=== PATIENT | female | born 1975 | race Caucasian/White ===

== ENCOUNTER 2022-01-21 08:35 | Emergency (ER) | payer BC, SELFPAY ==
[2022-01-21 09:26] VITALS: BP 98/65; PULSE 67; RESP 19; TEMP 37.1; O2SAT 100
--- NOTE | 2022-01-21 09:41 | ED.URI ---
HPI - URI/Sore Throat General Chief Complaint: Upper Respiratory Infection Stated Complaint: SORE THROAT/NASAL CONGESTION Time Seen by Provider: 01/21/22 09:36 Source: patient Mode of arrival: ambulatory Limitations: no limitations History of Present Illness HPI Narrative: Patient presents today with a 6 day history of sore throat and nasal congestion. Denies fever or any additional symptoms. She currently rates her pain 5/10 and has been gargling salt water and drinking hot tea without much relief. Son was diagnosed with strep throat 1 week ago. Related Data Allergies Allergy/AdvReac Type Severity Reaction Status Date / Time clarithromycin AdvReac N/V Verified 01/21/22 09:31 HYDROCODONE BIT AdvReac N/V Uncoded 01/21/22 09:31 Review of Systems Review of Systems: CONSTITUTIONAL: Denies body aches, fever, chills, or sweats. EYES: Denies visual changes, redness, or discharge. ENT: Denies rhinorrhea, or otalgia.+ sore throat, congestion CARDIOVASCULAR: Denies chest pain, palpitations, or edema. RESPIRATORY: Denies cough or dyspnea. GASTROINTESTINAL: Denies abdominal pain, nausea, vomiting, or diarrhea. GENITOURINARY: Denies dysuria or hematuria. SKIN: Denies rash, itching, or wounds. MUSCULOSKELETAL: Denies back pain, joint pain, or myalgia. NEUROLOGIC: Denies headache, numbness, tingling, or weakness. PSYCH: Denies depression or anxiety. [facility] Social History Social History Smoking status: Never smoker Alcohol intake: current Alcohol use details: Occasionally Substance use: never Comments At time of signature, I have reviewed and agree with nursing past medical, surgical, social and family history unless otherwise noted. Please see nursing chart for further information. There is no relevant family history pertinent to the presenting complaint Exam Narrative: GENERAL: Well-appearing, well-nourished, and in no acute distress. HEAD: Normocephalic, atraumatic. EYES: EOMI. No redness or drainage. Conjunctivae normal. ENT: Mucous membranes pink and moist. Nares congested. No rhinorrhea. TMs normal bilaterally. Throat mildly erythematous and edematous without exudate. Uvula midline. NECK: Normal AROM. Supple. No lymphadenopathy. CHEST: No respiratory distress. Clear to auscultation. HEART: Regular rate and rhythm. No murmur appreciated. Normal peripheral pulses. EXTREMITIES: Normal range of motion. No edema. SKIN: Warm, dry, no rash. Capillary refill normal. Normal skin turgor. NEURO: No focal deficits. Alert and oriented x3. Gait steady. PSYCH: Normal affect. No signs of depression or anxiety. Course Course Level of Care: Express Care Visit Vital Signs Vital signs: Vital Signs Temperature 98.7 F 01/21/22 09:26 Pulse Rate 67 01/21/22 09:26 Respiratory Rate 19 01/21/22 09:26 Blood Pressure 98/65 L 01/21/22 09:26 Pulse Oximetry 100 01/21/22 09:26 Oxygen Delivery Room Air 01/21/22 09:26 Temperature 98.7 F 01/21/22 09:26 Pulse Rate 67 01/21/22 09:26 Respiratory Rate 19 01/21/22 09:26 Blood Pressure 98/65 L 01/21/22 09:26 Pulse Oximetry 100 01/21/22 09:26 Oxygen Delivery Room Air 01/21/22 09:26 Reviewed MDM - URI/Sore Throat Differential Diagnosis Differential diagnosis: Likely upper respiratory infection, otitis media, viral infection, pharyngitis and other (Strep throat) Lab Data Attestation: I reviewed the patient's lab results. Lab results narrative: Rapid strep positive Critical Care Time Critical Care Time Critical Care Time: No Discharge Plan Discharge Clinical Impression: Strep throat Patient Disposition: Home, Self-Care Condition: Stable Instructions: Antibiotic Form, Strep Throat (DC) Additional Instructions: Please take the azithromycin as prescribed until gone. Take Tylenol or ibuprofen at home if needed for pain. You will be contagious for 48 hours after starti
== END 2022-01-21 09:50 | disposition home or self-care (01) ==
PROVIDERS: Emergency Provider Nurse Practitioner
DX: J02.0 Streptococcal pharyngitis (principal)
CPT/HCPCS: 87880; 99213; G0463

== ENCOUNTER 2022-07-06 08:03 | Emergency (ER) | payer BC, SELFPAY ==
[2022-07-06 08:10] VITALS: BP 103/84; PULSE 83; RESP 16; TEMP 36.5; O2SAT 100
--- NOTE | 2022-07-06 08:28 | ED.URI ---
HPI - URI/Sore Throat General Chief Complaint: Upper Respiratory Infection Stated Complaint: SORE THROAT Source: patient Mode of arrival: ambulatory Limitations: no limitations History of Present Illness HPI Narrative: 46-year-old female presents to [facility] with complaints of sore throat, headache, nasal congestion and sinus pressure since yesterday. Patient has been taking [id number] DayQuil and Gladys-Burns with minimal relief. Patient reports that her kitten was recently diagnosed with a virus and she is concerned that her kitten might have shared illness with her. patient denies fever, body aches, chills, nausea vomiting or diarrhea. Patient is a nonsmoker. Patient denies recent travel. MD elicited complaint: sore throat and nasal congestion Onset (ago): day(s) (2) Able to tolerate fluids by mouth: Yes Exacerbating factors: swallowing Treatments prior to arrival: cold medicine Related Data Allergies Allergy/AdvReac Type Severity Reaction Status Date / Time clarithromycin AdvReac N/V Verified 07/06/22 08:17 HYDROCODONE BIT AdvReac N/V Uncoded 07/06/22 08:17 Review of Systems Constitutional: Constitutional: Denies chills, Denies fatigue, Denies fever(s) and Denies weakness ENT: Denies dysphagia, Denies vertigo, Denies dizziness, Denies epistaxis, Reports nasal congestion and Reports sore throat Cardiovascular: Cardiovascular: Denies chest pain Respiratory: Respiratory: Denies cough, Denies dyspnea and Denies wheezing Gastrointestinal: Gastrointestinal: Denies diarrhea, Denies nausea and Denies vomiting Genitourinary: Genitourinary: Denies dysuria Integumentary/Breasts: Skin/Breast: Denies rash Neurologic: Denies dizziness, Denies syncope and Denies headache(s) PMFSH Social History Social History Smoking status: Never smoker Alcohol intake: current Alcohol use details: Occasionally Substance use: never Comments At time of signature, I agree with nursing past medical, surgical, social and family history. There is no relevant family history pertinent to the presenting complaint. Exam Const: General: healthy appearing and no acute distress Nutritional Appearance: well nourished Orientation/consciousness: patient oriented x3 Limitations: no limitations HENMT: Head: normal to inspection Ears: external ears normal, TM's normal bilaterally and EAC's normal Face and sinus: normal facial exam Mouth: Yes Normal oral and palatal mucosa present and Yes moist mucous membranes Teeth and gingiva: dentition normal Throat: uvula midline Other: Mild nasal congestion noted Eyes: Conjunctivae: conjunctivae normal Neck: Neck: normal visual inspection and lymphadenopathy bilateral posterior cervical soft; not warm and nontender Resp: Effort & Inspection: normal respiratory effort and not labored Auscultation: clear to auscultation bilaterally, no crackles, no rales, no rhonchi and no wheezes Cardio: Rate: regular rate Rhythm: regular rhythm Heart sounds: no murmurs Skin: General skin exam: normal color Wounds: no wounds Neuro: General: patient oriented x3 Extrem: General: normal to inspection Psych: Affect: normal affect Attitude: cooperative Course Course Level of Care: Express Care Visit Vital Signs Vital signs: Vital Signs Temperature 36.5 C 07/06/22 08:10 Pulse Rate 83 07/06/22 08:10 Respiratory Rate 16 07/06/22 08:10 Blood Pressure 103/84 07/06/22 08:10 Pulse Oximetry 100 07/06/22 08:10 Temperature 36.5 C 07/06/22 08:10 Pulse Rate 83 07/06/22 08:10 Respiratory Rate 16 07/06/22 08:10 Blood Pressure 103/84 07/06/22 08:10 Pulse Oximetry 100 07/06/22 08:10 MDM - URI/Sore Throat MDM Narrative Medical decision making narrative: informed patient her symptoms are likely viral at this time in symptoms are likely not related to kitten's recent illness. Encouraged patient
== END 2022-07-06 08:36 | disposition home or self-care (01) ==
PROVIDERS: Emergency Provider Nurse Practitioner Family
DX: B34.9 Viral infection, unspecified (principal)
CPT/HCPCS: 87081; 87880; 99213; G0463

== ENCOUNTER 2024-01-09 08:06 | Emergency (ER) | payer BC, SELFPAY ==
[2024-01-09 08:17] VITALS: BP 95/63; PULSE 70; RESP 16; TEMP 36.7; O2SAT 100
--- NOTE | 2024-01-09 08:22 | ED_ITS ---
HPI - URI/Sore Throat General Chief Complaint: Upper Respiratory Infection Stated Complaint: Sinus Infection Symptoms Time Seen by Provider: 01/09/24 08:22 Source: patient Mode of arrival: ambulatory Limitations: no limitations History of Present Illness HPI Narrative: 48-year-old female presents with complaint of nasal congestion, sinus pressure, postnasal drainage, cough and chest congestion for the past 8 days. Worsening of cough and chest congestion. Has been using Sudafed, Mucinex, sinus rinses with no relief of symptoms. Afebrile. No chest pain or shortness of breath. Reports blowing out greenish brown drainage from nose. All systems reviewed and negative except as noted above. Related Data Allergies Allergy/AdvReac Type Severity Reaction Status Date / Time acetaminophen [From Vicodin] AdvReac Nausea and Verified 01/09/24 08:23 Vomiting clarithromycin [From Biaxin] AdvReac Nausea and Verified 01/09/24 08:24 Vomiting hydrocodone [From Vicodin] AdvReac Nausea and Verified 01/09/24 08:23 Vomiting Review of Systems Review of Systems: CONSTITUTIONAL: Denies fever, chills, or sweats. EYES: Denies visual changes, redness, or discharge. ENT: Reports rhinorrhea, congestion, postnasal drainage, sinus pressure, sore t hroat. Denies otalgia. CARDIOVASCULAR: Denies chest pain, palpitations, or edema. RESPIRATORY: Reports cough. Denies dyspnea. GASTROINTESTINAL: Denies abdominal pain, nausea, vomiting, or diarrhea. GENITOURINARY: Denies dysuria or hematuria. SKIN: Denies rash or itching. MUSCULOSKELETAL: Denies back pain, joint pain, or myalgia. NEUROLOGIC: Denies headache, numbness, or weakness. PSYCHIATRIC: Denies anxiety or depression. All other systems reviewed are negative, except as documented in HPI. PMFSH Social History Social History Smoking status: Never smoker Alcohol intake: current Alcohol use details: Occasionally Substance use: never Comments At time of signature, agree with nursing past medical, surgical, social and family history. There is no relevant family history pertinent to the presenting complaint. Exam Narrative: GENERAL: This is a well-nourished, well-developed patient, in no apparent distress. HEAD: normocephalic, atraumatic. EYES: PERRL. Sclera clear/white. Vision is grossly intact. EARS: External ears normal, auditory canals clear and without drainage, TMs normal without perforation. Hearing grossly intact. NOSE: External nose normal with erythema and swelling to bilateral nares. Bilateral maxillary sinus tenderness on palpation. THROAT: Mucous membranes moist, postnasal drainage, erythema with no significant swelling or exudates. NECK: Neck supple, non-tender without lymphadenopathy, masses or thyromegaly. CARDIOVASCULAR: Regular rate and rhythm without murmurs, gallops, or rubs. RESPIRATORY: Clear to auscultation. Breath sounds equal bilaterally. No wheezes, rales, or rhonchi. SKIN: warm, Dry, intact with no suspicious lesions or rash, good texture and turgor. NEURO: awake, alert, and oriented to person, place and time. There were no obvious focal neurologic abnormalities. EXTREMITIES: No joint tenderness, effusion, or edema noted. Course Course Level of Care: Express Care Visit Vital Signs Vital signs: Vital Signs Temperature 36.7 C 01/09/24 08:17 Pulse Rate 70 01/09/24 08:17 Respiratory Rate 16 01/09/24 08:17 Blood Pressure 95/63 L 01/09/24 08:17 Pulse Oximetry 100 01/09/24 08:17 Temperature 36.7 C 01/09/24 08:17 Pulse Rate 70 01/09/24 08:17 Respiratory Rate 16 01/09/24 08:17 Blood Pressure 95/63 L 01/09/24 08:17 Pulse Oximetry 100 01/09/24 08:17 Reviewed MDM - URI/Sore Throat MDM Narrative Medical decision making narrative: Will treat patient for bacterial sinusitis due to duration of symptoms and exam findings. Patient is aware of diagnosis, understands and agrees to treatment plan. Anticipatory guidance given. Patient agrees to follow-up as directed and is aware of reasons to seek care at the emergency department. Portions of this record may have been created with voice recognition software Differential Diagnosis Differential diagnosis: Likely upper respiratory infection, sinusitis and viral infection Discharge Plan Discharge Clinical Impression: Acute bacterial sinusitis Patient Disposition: Home, Self-Care Condition: Stable Instructions: Antibiotic Form, Sinusitis (ED) Additional Instructions: Take medications as prescribed. Continue taking an [id number] daily antihistamine such as Claritin or Zyrtec. Continue using an [id number] nasal spray such as Flonase or Nasacort. Drink at least 64 oz of water a day. Place cool mist humidifier in bedroom where you sleep. Follow-up with your primary care physician if symptoms are not improving. Prescriptions: New doxycycline hyclate 100 mg capsule 100 mg PO BID 7 Days Qty: 14 0RF methylprednisolone [Medrol (Hansel)] 4 mg tablets,dose pack See Rx Instructions PO .COMPLEX Qty: 21 0RF Rx Instructions: orally per package directions benzonatate 200 mg capsule 200 mg PO TID PRN (Reason: cough) Qty: 20 0RF Follow-up/Referrals: PHYSICIAN,[employer] TE[employer]ER [Primary Care Provider] - Time of Disposition: 08:30
== END 2024-01-09 08:40 | disposition home or self-care (01) ==
PROVIDERS: Emergency Provider Nurse Practitioner Family
DX: J01.90 Acute sinusitis, unspecified (principal)
CPT/HCPCS: 99213; G0463